=== PATIENT | female | born 1960 | race Caucasian/White ===

== ENCOUNTER 2018-01-17 07:19 | Emergency (ER) | payer MEDICAID, OTHER ==
[~2018-01-17] VITALS: Ht 152.4 cm; Wt 60.0 kg
[~2018-01-17 07:19] MED LIST: TNFMISC; VERA40TA
[2018-01-17] MEDS ORDERED: LISI-660 PO (07:29)
[2018-01-17] MEDS ORDERED: METF-960 PO (07:29)
[2018-01-17 07:44] LABS: GLUCOSE,POINT OF CARE 153 MG/DL (70-110)
[2018-01-17] MEDS ORDERED: CIPROFLOXACIN HCL 250 MG TABLET PO ONE (07:45)
[2018-01-17] MEDS ORDERED: KETOROLAC TROMETHAMINE 30 MG/ML VIAL IVP ONE (07:45)
[2018-01-17] MEDS ORDERED: PERTUSS(ACELL),DIPH,TET VAC/PF 0.5 ML VIAL IM ONE (07:45)
[2018-01-17 08:47] VITALS: BP 133/78
[2018-01-17] MEDS ORDERED: HYDROCODONE/ACETAMINOPHEN 5-325 MG TABLET PO ONE (09:30)
== END 2018-01-17 11:23 | disposition home or self-care (01) ==
LOC: EMS 07:19
DX: S32.019A Unspecified fracture of first lumbar vertebra, initial encounter for closed fracture (principal); E11.9 Type 2 diabetes mellitus without complications; I10 Essential (primary) hypertension; Z79.899 Other long term (current) drug therapy; Z79.84 Long term (current) use of oral hypoglycemic drugs; W54.1XXA Struck by dog, initial encounter; Y93.01 Activity, walking, marching and hiking; Y92.488 Other paved roadways as the place of occurrence of the external cause; Y99.8 Other external cause status
CPT/HCPCS: 72131; 73610; 82962; 90471; 90715; 96374; 99284; J1885